=== PATIENT | male | born 1965 | race Caucasian/White ===

== ENCOUNTER 2016-09-24 20:03 | Emergency (ER) | payer OTHER ==
[~2016-09-24] VITALS: Ht 177.8 cm; Wt 144.4 kg
[~2016-09-24 20:03] MED LIST: AFRIN,GENASAL D15 ML IH; AZITHROMYCIN250 MG PO; DILTIAZEM 24HR120 MG PO; INDOCIN25 MG PO; LISINOPRIL20 MG PO; MEVACOR10 MG PO; ROXICET 5-3251 EACH PO; SERTRALINE HCL100 MG PO; SERTRALINE HCL50 MG PO; STOOL SOFTENER100 MG PO
[2016-09-24 21:03] LABS: HEMATOCRIT 39.3 % (38.0-50.0); MCH 31.1 PG (29.0-34.0); MCHC 32.3 G/DL (30.0-36.0); MCV 96.1 FL (86-99); MEAN PLAT.VOLUME 11.5 uM^3 (9.0-12.4); PLATELET COUNT 115 K/uL (156-360); RBC DIS.WIDTH-SD 49.4 % (39-53); RED BLOOD COUNT 4.09 M/uL (4.00-5.50); WHITE BLOOD COUNT 6.2 K/uL (4.1-10.2)
[2016-09-24 21:42] LABS: CHLORIDE 106 mEq/L (99-109); POTASSIUM 5.3 mEq/L (3.7-5.4)
[2016-09-24 21:43] LABS: SODIUM 137 mEq/L (136-147)
[2016-09-24 21:44] LABS: GLUCOSE 202 mg/dL (70-99)
[2016-09-24 21:46] LABS: ANION GAP 7 MEQ/L (2-14)
[2016-09-24 21:48] LABS: GFR ESTIMATE (CALCULATED) > 59 mL/min/
[2016-09-24 21:49] LABS: UREA NITROGEN (BUN) 26 mg/dL (9-23)
[2016-09-24 21:52] LABS: TROP-I INTERPRETATION NEGATIVE; TROPONIN-I 0.01 ng/mL (0.0-0.30)
[2016-09-25 01:59] VITALS: BP 175/75
== END 2016-09-25 02:00 | disposition home or self-care (01) ==
LOC: EME 20:03
DX: R60.0 Localized edema (principal); N50.89 Other specified disorders of the male genital organs; R06.00 Dyspnea, unspecified; E11.65 Type 2 diabetes mellitus with hyperglycemia; I10 Essential (primary) hypertension; Z85.820 Personal history of malignant melanoma of skin; Z72.0 Tobacco use; Z88.0 Allergy status to penicillin
CPT/HCPCS: 71020; 80048; 83880; 84484; 85027; 93005; 93970; 99281; 99284